=== PATIENT | male | born 1945 | race Caucasian/White ===

== ENCOUNTER 2021-11-15 15:26 | Inpatient (IN) | payer MEDICARE, BC ==
[~2021-11-15] VITALS: Ht 177.8 cm; Wt 80.8 kg
[2021-11-15] MEDS ORDERED: KETOROLAC TROMETHAMINE INJ 60 MG/2 ML VIAL IM ONE (16:00)
[2021-11-15] MEDS ORDERED: KETOROLAC TROMETHAMINE INJ 30 MG/ML VIAL ONE (16:00)
[2021-11-15] MEDS ORDERED: MORPHINE SULFATE INJ 4 MG/ML DISP.SYRIN ONE (16:00)
[2021-11-15] MEDS ORDERED: MORPHINE SULFATE INJ 2 MG/ML DISP.SYRIN IM ONE (16:00)
[2021-11-15] MEDS ORDERED: CYCLOBENZAPRINE 10 MG TABLET PO ONE (16:00)
[2021-11-15] MEDS ORDERED: CYCLOBENZAPRINE 10 MG TABLET ONE (16:01)
--- NOTE | 2021-11-15 16:26 | NUR ---
verbal order from Dr. Faria to convert all medications to IVP.
[2021-11-15] MEDS ORDERED: MORPHINE SULFATE INJ 4 MG/ML DISP.SYRIN IV ONE (16:30)
[2021-11-15] MEDS ORDERED: KETOROLAC TROMETHAMINE INJ 30 MG/ML VIAL IV ONE (16:30)
--- NOTE | 2021-11-15 16:47 | NUR ---
TORADOL 30 MG IV AND MORPHINE 4 MG IV ALREADY GIVEN BY MIN [facility].
--- NOTE | 2021-11-15 16:57 | NUR ---
PAIN DOWN TO 8/10.
[2021-11-15] MEDS ORDERED: HYDROMORPHONE 1 MG/1 ML DISP.SYRIN IV ONE (17:00)
[2021-11-15] MEDS ORDERED: HYDROMORPHONE 1 MG/1 ML DISP.SYRIN ONE (17:01)
[2021-11-15] MEDS ORDERED: FINA5TAB11 PO (17:23)
[2021-11-15] MEDS ORDERED: CLOP75TA15 PO (17:23)
[2021-11-15] MEDS ORDERED: DUTA0.5C PO (17:23)
[2021-11-15] MEDS ORDERED: PANT40TA49 PO (17:23)
[2021-11-15] MEDS ORDERED: METF750T46 PO (17:23)
[2021-11-15] MEDS ORDERED: ROSU40TA23 PO (17:23)
[2021-11-15] MEDS ORDERED: LEVO150T8 PO (17:23)
[2021-11-15] MEDS ORDERED: AMLO-213 PO (17:23)
[2021-11-15] MEDS ORDERED: TAMS-12 PO (17:23)
[2021-11-15] MEDS ORDERED: SILD100T70 PO (17:23)
[2021-11-15] MEDS ORDERED: LISI10TA29 PO (17:23)
--- NOTE | 2021-11-15 17:25 | NUR ---
covid antigen swab done and sent to the lab
[2021-11-15 17:42] LABS: BASOPHILS % (AUTO) 0.4 % (0.0-2.0); EOSINOPHILS % (AUTO) 0.9 % (0.0-6.0); HEMATOCRIT 33 % (39-51); HEMOGLOBIN 11.3 g/dL (13.5-17.5); LYMPHOCYTES # (AUTO) 2.1 K/uL (0.8-4.8); LYMPHOCYTES % (AUTO) 31.2 % (20.0-44.0); MEAN CORPUSCULAR HGB CONC 35 g/dl (31.0-36.0); MEAN CORPUSCULAR VOLUME 89 fL (80-96); MONOCYTES # (AUTO) 0.4 K/uL (0.1-1.30); MONOCYTES % (AUTO) 5.7 % (2.0-12.0); NEUTROPHILS # (AUTO) 4.1 K/uL (1.8-8.9); NEUTROPHILS % (AUTO) 61.8 % (43.0-81.0); PLATELET COUNT (AUTO) 201 K/uL (150-450); RED BLOOD CELL COUNT(AUTO) 3.65 MIL/uL (4.5-6.0); WHITE BLOOD COUNT (AUTO) 6.6 K/uL (4.3-11.0)
[2021-11-15 17:48] LABS: CALCIUM, SERUM 9.2 mg/dL (8.5-10.1); CREATININE 0.9 mg/dL (0.6-1.3); POTASSIUM 3.6 mmol/L (3.5-5.1)
[2021-11-15] MEDS ORDERED: CYCLOBENZAPRINE 10 MG TABLET PO PRN (19:00)
[2021-11-15] MEDS ORDERED: HYDROCODONE/APAP 5/325MG TABLET PO PRN (19:00)
[2021-11-15] MEDS ORDERED: ACETAMINOPHEN 325 MG TABLET PO PRN (19:00)
[2021-11-15] MEDS ORDERED: ONDANSETRON HCL/PF 4 MG/2 ML VIAL IVP PRN (19:00)
--- NOTE | 2021-11-15 19:25 | NUR ---
REPORT GIVEN TO NURSE SUMMERS FOR KELLEY
--- NOTE | 2021-11-15 19:47 | NUR ---
CALLED FOR REPORT ON THIRD FLOOR, LUIS WILL CALL ME BACK
--- NOTE | 2021-11-15 19:55 | NUR ---
[facility] SWAB COLLECTED AND SENT TO LAB. PATIENT'S BELONGINGS LIST DONE.
--- NOTE | 2021-11-15 19:58 | NUR ---
REPORT GIVEN TO LUIS
--- NOTE | 2021-11-15 20:26 | NUR ---
pt transported to room 319 without incident
[2021-11-15 20:30] VITALS: BP 149/77
[2021-11-15] MEDS: IV NS 0.9% 1,000 ML IV PRN (20:48)
--- NOTE | 2021-11-15 21:00 | NUR ---
MS/RN ADMITTING NOTE RECEIVED REPORT FROM BOOM SUPERVISOR JUNO. PATIENT ARRIVED TO UNIT VIA GURNEY AND 2 STAFF MEMBERS. PATIENT IS BEING ADMITTED WITH DX OF INTRACTABLE BACK PAIN. PATIENT IS ALERT AND ORIENTED X 4. LETHARGIC BUT ABLE TO ANSWER QUESTIONS. NO S/SX OF PAIN NOTED AT THIS TIME. CONTINUES ON ROOM AIR WITH NO S/SX OF RESPIRATORY DISTRESS NOTED. IV ACCESS TO RIGHT WRIST #20G INTACT, PATENT AND SALINE LOCKED. PATIENT REFUSED TO REMOVE CLOTHES OR PERFORM SKIN CHECK ON ADMISSION. NO VISIBLE SKIN ISSUES NOTED. PATIENT HAS LIMITED ROM D/T PAIN. PATIENT ORIENTED TO ROOM, CALL LIGHT AND UNIT. ASPIRATION, FALL AND SAFETY PRECAUTIONS MAINTAINED. ALL NEEDS ATTENDED TO AT THIS TIME.
[2021-11-15] MEDS ORDERED: OXYC-128 PO (21:04)
[2021-11-15] MEDS ORDERED: METH-647 PO (21:04)
--- NOTE | 2021-11-15 21:30 | NUR ---
TELE/RN NOTE PATIENT WITH C/O INCREASED PAIN. MORE ALERT, ABLE TO ANSWER QUESTIONS. ADMINISTERED PRN MORPHINE PER MD ORDERS.
[2021-11-15] MEDS: TAMSULOSIN 0.4 MG CAP.SR.24H PO SCH (21:47)
[2021-11-15] MEDS: ATORVASTATIN 40 MG TABLET PO SCH (21:47)
[2021-11-15] MEDS: MORPHINE SULFATE INJ 2 MG/ML DISP.SYRIN IV PRN (21:54)
[2021-11-16] MEDS: MORPHINE SULFATE INJ 2 MG/ML DISP.SYRIN IV PRN ×3 (03:57→20:32)
--- NOTE | 2021-11-16 04:00 | NUR ---
TELE/RN NOTE PATIENT WITH C/O INCREASED BACK PAIN. ADMINISTERED PRN MORPHINE PER MD ORDER. ALL NEEDS ATTENDED TO AT THIS TIME.
[2021-11-16] MEDS: IV NS 0.9% 1,000 ML IV PRN ×2 (05:28→20:41)
--- NOTE | 2021-11-16 06:40 | NUR ---
MS/RN CLOSING NOTE PATIENT CURRENTLY SLEEPING IN BED. ALERT AND ORIENTED X 4. ABLE TO MAKE NEEDS KNOWN. DENIES PAIN AT THIS TIME. CONTINUES ON ROOM AIR WITH NO S/SX OF RESPIRATORY DISTRESS NOTED. IV ACCESS TO RIGHT WRIST #20G INTACT AND PATENT. CONTINUES ON IVF NS @ 75ML/HR. ASPIRATION, FALL AND SAFETY PRECAUTIONS MAINTAINED. ALL NEEDS ATTENDED TO AT THIS TIME. WILL ENDORSE PLAN OF CARE TO ONCOMING SHIFT RN.
[2021-11-16 06:42] LABS: BASOPHILS % (AUTO) 0.5 % (0.0-2.0); EOSINOPHILS % (AUTO) 2.2 % (0.0-6.0); HEMATOCRIT 30 % (39-51); HEMOGLOBIN 10.5 g/dL (13.5-17.5); LYMPHOCYTES # (AUTO) 2.3 K/uL (0.8-4.8); LYMPHOCYTES % (AUTO) 38.4 % (20.0-44.0); MEAN CORPUSCULAR HGB CONC 35 g/dl (31.0-36.0); MEAN CORPUSCULAR VOLUME 90 fL (80-96); MONOCYTES # (AUTO) 0.4 K/uL (0.1-1.30); MONOCYTES % (AUTO) 7.4 % (2.0-12.0); NEUTROPHILS # (AUTO) 3.1 K/uL (1.8-8.9); NEUTROPHILS % (AUTO) 51.5 % (43.0-81.0); PLATELET COUNT (AUTO) 172 K/uL (150-450); RED BLOOD CELL COUNT(AUTO) 3.36 MIL/uL (4.5-6.0)
[2021-11-16 07:26] LABS: CALCIUM, SERUM 9.4 mg/dL (8.5-10.1); CARBON DIOXIDE 29 mmol/L (21-32); CHLORIDE 103 mmol/L (98-107); CREATININE 1.1 mg/dL (0.6-1.3); GLUCOSE 145 mg/dL (74-106); MAGNESIUM 1.9 mg/dL (1.8-2.4); POTASSIUM 3.6 mmol/L (3.5-5.1); SODIUM SERUM 138 mmol/L (136-145); UREA NITROGEN, BLOOD 35 mg/dL (7-18)
[2021-11-16] MEDS: PANTOPRAZOLE 40 MG TABLET.DR PO SCH (07:30)
[2021-11-16] MEDS: LEVOTHYROXINE SODIUM 75 MCG TABLET PO SCH (07:30)
--- NOTE | 2021-11-16 07:30 | NUR ---
MS RN OPENING NOTES: RECEIVED PATIENT IN BED ASLEEP AND EASY TO AROUSE WITH STIMULI. A/O X4 AND ABLE TO VERBALIZED NEEDS. NO SOB/CARDIAC DISTRESS NOTED, ON ROOM AIR AND TOLERATING WELL. NOTED WITH R HAND G#20 NS @75ML/HR AND INFUSING WELL. SAFETY PRECAUTION MEASURES: BED LOCKED AND IN LOWEST POSITION, CALL LIGHT IN EASY REACH FOR HELP.
--- NOTE | 2021-11-16 07:30 | NUR ---
MS/RN CLOSING NOTE PATIENT IN BED,AWAKE, ALERT AND ORIENTED X 4. ABLE TO MAKE NEEDS KNOWN. NO SOB OR CARDIAC DISTRESS NOTED, ON ROOM AIR AND TOLERATING WELL. IV ACCESS TO RIGHT HAND #20G INTACT AND PATENT. CONTINUES ON IVF NS @ 75ML/HR. ASPIRATION, FALL AND SAFETY PRECAUTIONS MAINTAINED. ENDORSED TO ENOLOGIST NURSE FOR CONTINUITY OF CARE.
[2021-11-16 07:44] LABS: CHOLESTEROL 226 mg/dL (<200); HDL CHOLESTEROL 32 mg/dL (40-60); LDL 115 mg/dL (0-99); TRIGLYCERIDES 231 mg/dL (30-150)
[2021-11-16 08:00] VITALS: BP 156/87
[2021-11-16] MEDS ORDERED: DUTASTERIDE (0.5 MG) 0.5 MG CAPSULE PO SCH (09:00)
[2021-11-16] MEDS: METFORMIN 500 MG TABLET PO SCH (09:14)
[2021-11-16] MEDS: FINASTERIDE (5 MG) 5 MG TABLET PO SCH (09:14)
[2021-11-16] MEDS: CLOPIDOGREL BISULFATE 75 MG TABLET PO SCH (09:14)
[2021-11-16] MEDS: LISINOPRIL (10MG) 10 MG TABLET PO SCH (09:15)
[2021-11-16] MEDS: AMLODIPINE BESYLATE 10 MG TABLET PO SCH (09:15)
[2021-11-16] MEDS: METHOCARBAMOL (500MG) 500 MG TABLET PO SCH ×2 (12:12→18:34)
[2021-11-16] MEDS: oxyCODONE/APAP (5/325 MG) 1 UDTAB TABLET PO PRN ×3 (12:12→20:32)
--- NOTE | 2021-11-16 12:14 | NUR ---
RN NOTES: PAIN MEDICATIONS GIVEN ALL AT ONCE (PERCOCET 5-325 TAB,MORPHINE 2MG/ML IV, TORADOL 30MG/ML IV, ROBAXIN 500MG/TAB), DR CAMPBELL IN THE UNIT INFORMED AND OKAY'D TO GIVE ALL MEDS ORDERED.
[2021-11-16] MEDS: KETOROLAC TROMETHAMINE INJ 30 MG/ML VIAL IM PRN ×2 (12:16→18:34)
[2021-11-16] MEDS ORDERED: MORPHINE SULFATE INJ 2 MG/ML DISP.SYRIN IV ONE (14:30)
--- NOTE | 2021-11-16 15:30 | NUR ---
RN NOTES: PATIENT PICKED UP FOR CT LUMBAR, GIVEN MORPHINE 2MG/ML IV PRIOR TO CT, PER MD ORDER .
[2021-11-16 16:00] VITALS: BP 127/67
--- NOTE | 2021-11-16 18:53 | NUR ---
319 MS RN CLOSING NOTES: PATIENT IN FLAT IN BED A/O X4 AND ABLE TO VERBALIZED NEEDS. NO SOB/CARDIAC DISTRESS NOTED, ON ROOM AIR AND TOLERATING WELL. NOTED WITH R HAND G#20 NS @75ML/HR AND INFUSING WELL. ON PAIN MANAGEMENT ORDERED AND TOLERATED WELL. SAFETY PRECAUTION MEASURES: BED LOCKED AND IN LOWEST POSITION, CALL LIGHT IN EASY REACH FOR HELP. ENDORSED TO SPOILAGE WORKER NURSE FOR CONTINUITY OF CARE.
--- NOTE | 2021-11-16 19:20 | NUR ---
MS/RN OPENING NOTE RECEIVED PATIENT RESTING IN BED. AWAKE, ALERT AND ORIENTED X 4. ABLE TO MAKE NEEDS KNOWN. DENIES PAIN AT THIS TIME. CONTINUES ON ROOM AIR WITH NO S/SX OF RESPIRATORY DISTRESS NOTED. IV ACCESS TO RIGHT WRIST #20G INTACT AND PATENT. CONTINUES ON IVF NS @ 75ML/HR. ASPIRATION, FALL AND SAFETY PRECAUTIONS MAINTAINED. ALL NEEDS ATTENDED TO AT THIS TIME.
[2021-11-16 20:00] VITALS: BP_SYST 107
[2021-11-16] MEDS: TAMSULOSIN 0.4 MG CAP.SR.24H PO SCH (21:08)
[2021-11-16] MEDS: ATORVASTATIN 40 MG TABLET PO SCH (21:08)
[2021-11-17] MEDS: oxyCODONE/APAP (5/325 MG) 1 UDTAB TABLET PO PRN ×4 (05:26→18:45)
[2021-11-17] MEDS: METHOCARBAMOL (500MG) 500 MG TABLET PO SCH ×4 (05:26→18:44)
[2021-11-17] MEDS: MORPHINE SULFATE INJ 2 MG/ML DISP.SYRIN IV PRN ×4 (05:27→18:46)
[2021-11-17] MEDS: KETOROLAC TROMETHAMINE INJ 30 MG/ML VIAL IM PRN ×3 (05:27→18:47)
[2021-11-17] MEDS: IV NS 0.9% 1,000 ML IV PRN ×2 (05:38→20:36)
--- NOTE | 2021-11-17 07:30 | NUR ---
MS RN OPENING NOTES: RECEIVED PATIENT IN BED ASLEEP AND EASY TO AROUSE WITH STIMULI. A/O X4 AND ABLE TO VERBALIZED NEEDS. NO SOB/CARDIAC DISTRESS NOTED, ON ROOM AIR AND TOLERATING WELL. NOTED WITH R HAND G#20 NS @75ML/HR AND INFUSING WELL. SAFETY PRECAUTION MEASURES: BED LOCKED AND IN LOWEST POSITION, CALL LIGHT IN EASY REACH FOR HELP. KEPT RESTED AND COMFORTABLE, WILL MONITOR FOR ANY SIGNIFICANT CHANGES.
[2021-11-17] MEDS: LEVOTHYROXINE SODIUM 75 MCG TABLET PO SCH (07:34)
[2021-11-17] MEDS: PANTOPRAZOLE 40 MG TABLET.DR PO SCH (07:34)
[2021-11-17 08:00] VITALS: BP 133/69
[2021-11-17] MEDS: FINASTERIDE (5 MG) 5 MG TABLET PO SCH (08:47)
[2021-11-17] MEDS: METFORMIN 500 MG TABLET PO SCH (08:47)
[2021-11-17] MEDS: CLOPIDOGREL BISULFATE 75 MG TABLET PO SCH (08:48)
[2021-11-17] MEDS: LISINOPRIL (10MG) 10 MG TABLET PO SCH (08:49)
[2021-11-17] MEDS: AMLODIPINE BESYLATE 10 MG TABLET PO SCH (08:49)
--- NOTE | 2021-11-17 14:40 | NUR ---
RN NOTES: PATIENT COMPLAINED OF LOWER BACK PAIN 8/10 PAIN SCALE. PRN MORPHINE 2MG/ML IIVP AND PERCOCET 5-325MG PO ADMINISTERED 1432, WILL CONTINUE TO REASSES PATIENT.
[2021-11-17 15:55] LABS: CREATININE, URINE 64.1 MG/DL (30.0-125.0); URINE TOTAL PROTEIN 23.4 mg/dL (0-11.9)
[2021-11-17 16:00] VITALS: BP 129/63
--- NOTE | 2021-11-17 16:27 | NUR ---
RN NOTES: TLSO BRACE DELIVERED AND FITTED TO PATIENT BY DEMETRI SOLIS OF [employer]. TLSO BRACE IS AT BED SIDE. PATIENT SIGNED DELIVERY FORMS/PAPERS FROM [employer]
[2021-11-17 16:39] LABS: BILIRUBIN,URINE NEGATIVE (NEGATIVE); COLOR,URINE YELLOW (YELLOW); LEUKOCYTE ESTERASE ,URINE NEGATIVE (NEGATIVE); NITRITE, URINE NEGATIVE (NEGATIVE); PROTEIN,URINE NEGATIVE (NEGATIVE); UGLUCOSE NEGATIVE (NEGATIVE)
[2021-11-17 17:50] LABS: BACTERIA,URINE None seen /HPF (None Seen); MUCUS,URINE Few /LPF (None Seen); SQUAMOUS EPITHELIAL CELL,UR 0-2 /HPF (None Seen); WBC,URINE 0-2 /HPF (0-3)
[2021-11-17 18:01] LABS: EOSINOPHIL,URINE None Seen
--- NOTE | 2021-11-17 18:36 | NUR ---
MS/RN CLOSING NOTE PATIENT IN BED, AWAKE, ALERT AND ORIENTED X 4. ABLE TO MAKE NEEDS KNOWN. NO SOB OR CARDIAC DISTRESS NOTED, ON ROOM AIR AND TOLERATING WELL. ON PAIN MANAGEMENT PER MD ORDER. IV ACCESS TO RIGHT WRIST #20G INTACT AND PATENT. CONTINUES ON IVF NS @ 75ML/HR. ASPIRATION, FALL AND SAFETY PRECAUTIONS MAINTAINED. ENDORSED TO DISHTANK OPERATOR FOR CONTINUITY OF CARE.
--- NOTE | 2021-11-17 19:35 | NUR ---
MS RN OPENING NOTE RECEIVED PT AWAKE IN BED. A/O X4 AND ABLE TO MAKE NEEDS KNOWN. PT STABLE ON ROOM AIR. NO SOB OR S/S OF RESPIRATORY DISTRESS. BREATHING EVEN AND UNLABORED. IV ACCESS R WRIST 20 GAUGE, INTACT AND PATENT, RUNNING NS @ 75ML/HR. SAFETY PRECAUTIONS IN PLACE. BED IN LOWEST LOCKED POSITION, HOB ELEVATED, SIDE RAILS UP X2, AND CALL LIGHT AND TABLE WITHIN REACH. ALL NEEDS MET AT THIS TIME.
[2021-11-17 20:00] VITALS: BP 138/76
[2021-11-17] MEDS: ATORVASTATIN 40 MG TABLET PO SCH (21:08)
[2021-11-17] MEDS: TAMSULOSIN 0.4 MG CAP.SR.24H PO SCH (21:08)
[2021-11-18] MEDS: oxyCODONE/APAP (5/325 MG) 1 UDTAB TABLET PO PRN ×5 (02:58→21:27)
[2021-11-18] MEDS: MORPHINE SULFATE INJ 2 MG/ML DISP.SYRIN IV PRN ×5 (02:58→21:26)
--- NOTE | 2021-11-18 02:58 | NUR ---
RN NOTE PATIENT COMPLAINED OF LOWER BACK PAIN 03/27. ADMINISTERED MORPHINE 2MG AND PERCOCET 5-325 MG FOR SEVERE PAIN ORDERED. MADE COMFORTABLE IN BED. ALL NEEDS MET AT THIS TIME.
[2021-11-18] MEDS: METHOCARBAMOL (500MG) 500 MG TABLET PO SCH ×4 (06:04→17:13)
--- NOTE | 2021-11-18 06:48 | NUR ---
MS RN CLOSING NOTE PT AWAKE IN BED. A/O X4 AND ABLE TO MAKE NEEDS KNOWN. PT STABLE ON ROOM AIR. NO SOB OR S/S OF RESPIRATORY DISTRESS. BREATHING EVEN AND UNLABORED. IV ACCESS R WRIST 20 GAUGE, INTACT AND PATENT, RUNNING NS @ 75ML/HR. ALL DUE MEDS GIVEN ORDERED. SAFETY PRECAUTIONS IN PLACE AT ALL TIMES. BED IN LOWEST LOCKED POSITION, HOB ELEVATED, SIDE RAILS UP X2, AND CALL LIGHT AND TABLE WITHIN REACH. ALL NEEDS MET AT THIS TIME AND WILL ENDORSE TO ONCOMING SHIFT FOR KELLEY.
--- NOTE | 2021-11-18 07:45 | NUR ---
RN OPENING NOTE PATIENT AWAKE IN BED RESTING, A/O X4. NO S/S OF PAIN NOTED AT THIS TIME. ON ROOM AIR, NO DISTRESS OR SHORTNESS OF BREATH NOTED. IV ACCESS R WRIST #22G, INTACT, PATENT AND FLUSHING WELL. FALL AND SAFETY MEASURES IN PLACE, BED ALARM ON BED IN LOW AND LOCK POSITION, CALL LIGHT AND TABLE WITHIN EASY REACH, SIDE RAILS UP X2. WILL CONTINUE TO MONITOR.
[2021-11-18 08:00] VITALS: BP 161/76
[2021-11-18] MEDS: LISINOPRIL (10MG) 10 MG TABLET PO SCH (08:26)
[2021-11-18] MEDS: LEVOTHYROXINE SODIUM 75 MCG TABLET PO SCH (08:26)
[2021-11-18] MEDS: AMLODIPINE BESYLATE 10 MG TABLET PO SCH (08:26)
[2021-11-18] MEDS: FINASTERIDE (5 MG) 5 MG TABLET PO SCH (08:26)
[2021-11-18] MEDS: METFORMIN 500 MG TABLET PO SCH (08:27)
[2021-11-18] MEDS: CLOPIDOGREL BISULFATE 75 MG TABLET PO SCH (08:27)
[2021-11-18] MEDS: PANTOPRAZOLE 40 MG TABLET.DR PO SCH (08:27)
[2021-11-18] MEDS: IV NS 0.9% 1,000 ML IV PRN (08:45)
[2021-11-18] MEDS ORDERED: KETOROLAC TROMETHAMINE INJ 30 MG/ML VIAL IV PRN (12:00)
[2021-11-18 16:00] VITALS: BP 140/77
--- NOTE | 2021-11-18 18:35 | NUR ---
RN CLOSING NOTE PATIENT AWAKE IN BED RESTING, A/O X4. NO S/S OF PAIN NOTED AT THIS TIME, BUT PAIN MEDICATION GIVEN DURING THE SHIFT, PATIENT ASKED FOR MORPHINE AND PERCOCET AND REQUESTED TO BE GIVEN AT THE SAME TIME. ON ROOM AIR, NO DISTRESS OR SHORTNESS OF BREATH NOTED. IV ACCESS R WRIST #22G, INTACT, PATENT AND FLUSHING WELL. FALL AND SAFETY MEASURES IN PLACE, BED ALARM ON BED IN LOW AND LOCK POSITION, CALL LIGHT AND TABLE WITHIN EASY REACH, SIDE RAILS UP X2. WILL ENDORSE TO SHIFTMAN.
--- NOTE | 2021-11-18 19:13 | NUR ---
RN OPENING NOTES PATIENT AWAKE IN BED RESTING, A/O X4. NO S/S OF PAIN NOTED AT THIS TIME, BUT PAIN MEDICATION GIVEN DURING THE SHIFT, ON ROOM AIR, NO DISTRESS OR SHORTNESS OF BREATH NOTED. IV ACCESS R WRIST #22G, INTACT, PATENT AND FLUSHING WELL. FALL AND SAFETY MEASURES IN PLACE, BED ALARM ON BED IN LOW AND LOCK POSITION, CALL LIGHT AND TABLE WITHIN EASY REACH, SIDE RAILS UP X2. WILL CONTINUE TO MONITOR.
[2021-11-18 20:00] VITALS: BP 129/65
[2021-11-18] MEDS: TAMSULOSIN 0.4 MG CAP.SR.24H PO SCH (21:27)
[2021-11-18] MEDS: ATORVASTATIN 40 MG TABLET PO SCH (21:27)
--- NOTE | 2021-11-18 21:35 | NUR ---
RN NOTES PT GIVEN PRN PAIN MEDICATION FOR 10/ 10 PAIN ON A NUMERIC PAIN SCALE. TOLERATED WELL.PER PT " DO NOT WAKE ME UP AGAIN IF YOU SEE IM ASLEEP DON'T MAKE ME UP TO GIVE ME MEDICATIONS' ALL NEEDS MET AT THIS TIME. WILL CONTINUE TO MONITOR.
[2021-11-19] MEDS: MORPHINE SULFATE INJ 2 MG/ML DISP.SYRIN IV PRN ×3 (03:19→12:10)
[2021-11-19] MEDS: oxyCODONE/APAP (5/325 MG) 1 UDTAB TABLET PO PRN ×3 (03:19→12:10)
--- NOTE | 2021-11-19 03:27 | NUR ---
RN NOTES PT GIVEN PRN PAIN MEDICATION FOR 10/ 10 PAIN ON A NUMERIC PAIN SCALE. TOLERATED WELL. ALL NEEDS MET AT THIS TIME. WILL CONTINUE TO MONITOR.
[2021-11-19] MEDS: METHOCARBAMOL (500MG) 500 MG TABLET PO SCH ×4 (06:00→13:06)
--- NOTE | 2021-11-19 06:26 | NUR ---
RN CLOSING NOTES PATIENT ASLEEP IN BED RESTING, A/O X4. NO S/S OF PAIN NOTED AT THIS TIME, PAIN MEDICATION GIVEN DURING THE SHIFT, NEEDED ON ROOM AIR, NO DISTRESS OR SHORTNESS OF BREATH NOTED. IV ACCESS R WRIST #22G, INTACT, PATENT AND FLUSHING WELL. FALL AND SAFETY MEASURES IN PLACE, BED ALARM ON BED IN LOW AND LOCK POSITION, CALL LIGHT AND TABLE WITHIN EASY REACH, SIDE RAILS UP X2. WILL ENDORSE CARE TO DAY SHIFT NURSE.
--- NOTE | 2021-11-19 07:25 | NUR ---
MS RN OPENING NOTES RECEIVED PATIENT AWAKE IN BED RESTING, A/O X4. NO S/S OF PAIN NOTED AT THIS TIME, COMPLAINED OF SOME DISCOMFORT BUT WANTS MORPHINE AND PERCOCET EVERY 4 HOURS TOGETHER, MD AWARE. ON ROOM AIR, NO DISTRESS OR SHORTNESS OF BREATH NOTED. WITH IV ACCESS R WRIST #22G, INTACT AND PATENT. WITH IV FLUID OF NS RUNNING AT 75 ML/HR INFUSING WELL. FALL AND SAFETY MEASURES IN PLACE, BED ALARM ON BED IN LOW AND LOCK POSITION, CALL LIGHT AND TABLE WITHIN EASY REACH, SIDE RAILS UP X2. WILL CONTINUE TO MONITOR.
[2021-11-19 08:00] VITALS: BP 141/70
[2021-11-19] MEDS: PANTOPRAZOLE 40 MG TABLET.DR PO SCH (08:03)
[2021-11-19] MEDS: LEVOTHYROXINE SODIUM 75 MCG TABLET PO SCH (08:03)
[2021-11-19] MEDS: METFORMIN 500 MG TABLET PO SCH (09:34)
[2021-11-19 09:35] VITALS: BP 141/70
[2021-11-19] MEDS: CLOPIDOGREL BISULFATE 75 MG TABLET PO SCH (09:35)
[2021-11-19] MEDS: AMLODIPINE BESYLATE 10 MG TABLET PO SCH (09:35)
[2021-11-19] MEDS: LISINOPRIL (10MG) 10 MG TABLET PO SCH (09:35)
[2021-11-19] MEDS: FINASTERIDE (5 MG) 5 MG TABLET PO SCH (09:35)
[2021-11-19] MEDS ORDERED: ALEN70TA3 PO (12:52)
[2021-11-19] MEDS ORDERED: KETO30VI14 IV (12:52)
--- NOTE | 2021-11-19 14:50 | NUR ---
MS RN NOTE PATIENT WITH ORDER FOR TRANSFER TO [facility]. PATIENT'S SON WENT TO CHECK FACILITY AND AGREED TO BE TRANSFERRED THERE. PATIENT SEEN BY DR. CAMPBELL. HEALTH TEACHING DONE REGARDING DISCHARGE, WEARING TLSO WHEN OUT OF BED AND MEDICATIONS. VERBALIZED UNDERSTANDING AND APPRECIATION. COMFORT MEASURES PROVIDED. IN STABLE CONDITION.
--- NOTE | 2021-11-19 16:30 | NUR ---
MS RN NOTE PATIENT DISCHARGED ORDERED. PATIENT PICKED UP BY 2 EMT PERSONNEL VIA GURNEY. IV MEDICATION CHANGED BY MD TO ORAL (TORADOL). CALLED FACILITY RN AND LEFT MESSAGE FOR NICO PIMENTEL BECAUSE HE IS WITH A PATIENT. FAXED MED RECON TO CHANGE IV TORADOL TO ORAL PER DR. CAMPBELL. PATIENT GIVEN TORADOL IV ENDORSED AND PER PATIENT'S REQUEST TO MANAGE PAIN. IN STABLE CONDITION. ENDORSED ACCORDINGLY.
--- NOTE | 2021-11-19 19:40 | NUR ---
TORADOL WASTED WITH NICO CAMARGO. PATIENT ONLY GIVEN 15MG OR 0.5ML, THE REST WAS WASTED.
[2021-11-24] MEDS ORDERED: ALENDRONATE 70 MG TABLET PO SCH (06:30)
== END 2021-11-19 15:50 | DRG 552 ==
LOC: ER 15:30 → TRANSITION 19:06 → MED 19:31
PROVIDERS: ADMIT Nurse Practitioner Acute Care; ATTEND Nurse Practitioner Acute Care
DX: M47.816 Spondylosis without myelopathy or radiculopathy, lumbar region (principal); E87.1 Hypo-osmolality and hyponatremia; M48.56XA Collapsed vertebra, not elsewhere classified, lumbar region, initial encounter for fracture; E03.9 Hypothyroidism, unspecified; E11.9 Type 2 diabetes mellitus without complications; Z20.822 Contact with and (suspected) exposure to COVID-19; Z88.0 Allergy status to penicillin; Z79.84 Long term (current) use of oral hypoglycemic drugs; Z79.899 Other long term (current) drug therapy; Z79.02 Long term (current) use of antithrombotics/antiplatelets; G89.29 Other chronic pain; I10 Essential (primary) hypertension; N40.0 Benign prostatic hyperplasia without lower urinary tract symptoms; Z74.09 Other reduced mobility; Z86.73 Personal history of transient ischemic attack (TIA), and cerebral infarction without residual deficits; M48.061 Spinal stenosis, lumbar region without neurogenic claudication; M85.80 Other specified disorders of bone density and structure, unspecified site; M43.16 Spondylolisthesis, lumbar region; Z74.01 Bed confinement status
CPT/HCPCS: 36415; 72131-TC; 80048-TC; 80061-TC; 81001; 82570-TC; 83735-TC; 84100-TC; 84155-TC; 84300-TC; 85025-TC; 87081-TC; 93307-TC; 97112-TC; 97530-TC; C9803; G0378; J1170; J1885; J2270; J7030